=== PATIENT | female | born 1965 | race Asian ===

== ENCOUNTER 2017-10-13 08:16 | Inpatient (IN) | payer OTHER ==
[2017-10-13] MEDS ORDERED: SODIUM CHLORIDE 1,000 ML IV SCH (08:45)
--- NOTE | 2017-10-13 09:00 | PDOC ---
History of Present Illness - History of Present Illness Initial Comments: Davey Nielsen is a 52yo woman with no known medical history who presents today for acute onset of left-sided limb weakness and left-sided facial numbness. She reports that she woke up around 4:30 this morning for work and felt well at that point other than a headache which resolved with 800mg ibuprofen. She initially stated that she noticed the numbness and heaviness shortly after waking up and became concerned when it did not resolve. On further questioning, she clarified that she felt well in the morning and began to notice the facial numbness and left-sided heavieness while at work. She was concerned and an ambulance was called. Other than the headache this morning, she denies any additional symptoms. She has not had any infectious symptoms recently, has never been hospitalized, and states that she has never had similar symptoms in past. <Sophia Blanchard - Last Filed: 10/13/17 15:26> <Juan Smith - Last Filed: 10/15/17 14:59> - General Stated Complaint: Weakness Time Seen by Provider: 10/13/17 08:27 Past History - Past Medical History Other medical history: Pre-diabetes, does not require medication <Sophia Blanchard - Last Filed: 10/13/17 15:26> <Juan Smith - Last Filed: 10/15/17 14:59> - Past Medical History Allergies/Adverse Reactions: Allergies Allergy/AdvReac Type Severity Reaction Status Date / Time No Known Allergies Allergy Verified 10/13/17 09:16 Home Medications: Ambulatory Orders NK [No Known Home Medication] 10/13/17 Neuro Specific PMHX - Complaint Specific PMHX Glaucoma: No Herniated Disk: No Laminectomy: No Neuropathy: No TIA: No <Sophia Blanchard - Last Filed: 10/13/17 15:26> Review of Systems - Review of Systems Comments:: 10/13/17 09:01 General: No fatigue, no change in weight HEENT: No congestion, no runny nose, no change in voice Cards: No chest pain, no racing heart, no palpitations Pulm: No SOB, no cough, no h/o asthma GI: No nausea or vomiting, no change in bowel habits, no heartburn : No frequency, no dysuria Neuro: See HPI Endo: No excessive thirst, no temp intolerance Heme: No unusual bruising or bleeding Vasc: No claudication Psych: No change in mood <LoSophia - Last Filed: 10/13/17 15:26> *Physical Exam - Vital Signs Last Vital Signs Temp Pulse Resp BP Pulse Ox 98.6 F 71 16 132/89 100 10/13/17 08:16 10/13/17 08:16 10/13/17 08:16 10/13/17 08:16 10/13/17 08:16 <Juan Smith - Last Filed: 10/15/17 14:59> NIH Stroke Scale - Last Known Well Date/Time & Onset Date Last Known Well: 10/13/17 Time Last Known Well: 04:30 - Initial Evaluation Level of consciousness: Alert Ask patient the month and their age: Answers both correctly Ask patient to open & close eyes; make fist and let go: Obeys both correctly Best gaze (horizontal eye movement): Normal Visual field testing: No visual field loss Facial paresis (Show teeth/raise eyebrows/close eyes tight): Minor paralysis ( flattened nasolabial fold, asymmetry on smiling) Motor Function: Left Arm: Drift Motor Function: Right Arm: Normal (extends arm 90 (or 45) degrees for 10 seconds without drift Motor Function: Left Leg: Some effort against gravity Motor Function: Right Leg: Normal (extends leg 30 degrees for 5 seconds without drift) Limb Ataxia: No ataxia Sensory(Use pinprick test arms,legs,trunk,face/side to side): Normal Best language (Describe picture, name items, read sentences): No Aphasia Dysarthria (read several words): Normal articulation Extinction and Inattention: No abnormality - Total Score NIH Stroke Scale Score: 4 <LoSophai - Last Filed: 10/13/17 15:26> tPA Exclusion Checklist 0-3hr - Thrombolytic Therapy Candidate Is the patient eligible for Thrombolytic Therapy?: Yes - Exclusion Criteria 0-3hr SBP greater than 185 or DBP greater than 110mmHg despite tx: No Recent IC/spinal surgery,head trauma or stroke w/in last 3mo: No Hx of previous IC hemorrhage, IC neoplasm, AVM or aneurysm: No Active internal bleeding: No Blding diathesis(low plt ct, inc PTT,INR>1.7 or use of NOAC): No Symptoms suggest subarachnoid hemorrhage: No CT demonstrates multilobar infarct(>1/3 cerebral hemiphere): No Arterial puncture at noncompressible site in previous 7 days: No Blood glucose concentration less than 50mg/dL (2.7mmol/L): No - Relative Exclusion Criteria 0-3h Life expectancy <1yr/severe co-morbid illness/ONSHORE DIVER on admit: No : No Stroke severity too mild: No Recent acute AR (w/in previous 3 months): No Seizure at onset with postictal residual neuro impairments: No <Sophia Blanchard - Last Filed: 10/13/17 15:26> Critical Care Time/MDM Note - Medical Decision Making Note: Davey Nielsen is a 52yo woman with a history of prediabetes who presented to the ED today with acute onset of left-sided weakness and left facial numbness starting at approximately 6-6:30am. Her stroke scale was 3-4 and her presentation is highly suspicious for stroke. Code quesada called in the ED. - Noncontrast CT head negative for intracranial bleed - Initial glucose fingerstick 102 - CBC, CMP, EKG ordered - Neurology consulted, agree with likelihood of stroke. Plan to give tPA for non-hemorrhagic stroke. Discussed plan with patient and also her sister over the phone. Both are in agreement with plan. Neurology in agreement. Ms Herring has no contraindications to tPA administration. Formal consent was obtained prior to starting tPA. - The ICU was contacted for admission. - Neurology was consulted for evaluation and recommendations AT approximately 11am, Ms Nielsen's sister arrived at the ED and stated that the patient had been experiencing left arm weakness lasting for under 5 minutes periodically for the past week. She had not seen a physician for evaluation and had no leg weakness prior to today. Ms Nielsen was re-examined following tPA administration and her exam was unchanged with continued left-sided weakness. She was sent for CTA to evaluate for large vessel occlusion, but none was noted on CTA. Seen and discussed with Dr Smith. <Sophia Blanchard - Last Filed: 10/13/17 15:26> Total Critical Care Time: 65 Critical Care Statement: The care of this patient involved high complexity decision making to prevent further life threatening deterioration of the patient 's condition and/or to evaluate & treat vital organ system(s) failure or risk of failure. <Juan Smith - Last Filed: 10/15/17 14:59> Discharge Disposition <Sophia Blanchard - Last Filed: 10/13/17 15:26> - Discharge Dispostion Decision to Admit order: Yes <Juan Smith - Last Filed: 10/15/17 14:59> - Diagnosis Non-hemorrhagic stroke - Discharge Dispostion Condition at time of disposition: Critical
[2017-10-13] MEDS ORDERED: ALTEPLASE 100MG 100 MG IVPB ONE (09:12)
[2017-10-13] MEDS ORDERED: ALTEPLASE BOLUS IVPUSH ONE (09:16)
[2017-10-13] MEDS ORDERED: ALTEPLASE 100 MG VIAL IVPB ONE (09:16)
[2017-10-13 09:20] LABS: BASO % 2.4 % (0-2.0); EOS % 5.8 % (0-4.5); HEMATOCRIT 32.2 % (32.4-45.2); HEMOGLOBIN 9.8 GM/dL (10.7-15.3); LYMPH % 34.9 % (8-40); MCHC 30.6 g/dl (32.0-36.0); MEAN CELL VOLUME 64.9 fl (80-96); MEAN PLT VOLUME 9.2 fl (7.5-11.1); MONO % 8.2 % (3.8-10.2); NEUT % 48.7 % (42.8-82.8); PLATELET COUNT 269 K/MM3 (134-434); RBC 4.95 M/mm3 (3.60-5.2); RDW 19.3 % (11.6-15.6); WHITE BLOOD COUNT 6.2 K/mm3 (4.0-10.0)
[2017-10-13 09:32] LABS: INR 1.12 (0.82-1.09); MCH 19.9 pg (25.7-33.7); PROTHROMBIN TIME (PATIENT) 12.7 SEC (9.7-13.0)
[2017-10-13 09:43] LABS: ANION GAP 9 (8-16); BILIRUBIN,TOTAL 0.9 mg/dL (0.2-1.0); BLOOD UREA NITROGEN 11 mg/dL (7-18); CHLORIDE 106 mmol/L (98-107); CHOLESTEROL 211 mg/dL (50-200); CO2 26 mmol/L (21-32); CREATININE 0.7 mg/dL (0.55-1.02); GLUCOSE,RANDOM 85 mg/dL (74-106); SGPT/ALT 29 U/L (12-78); SODIUM 141 mmol/L (136-145); TOT PROT 9.3 g/dl (6.4-8.2); TRIGLYCERIDES 92 mg/dL (35-160)
--- NOTE | 2017-10-13 10:07 | PDOC ---
Attending Attestation - Resident Resident Name: Sophia Blanchard - HPI HPI: 10/13/17 10:53 The patient is a 52 year old female with no known medical history who presents to the emergency department for evaluation of left sided weakness and left- sided facial numbness. The patient reports left-sided weakness, left-sided facial numbness, and heaviness beginning at her job at 630am. Pt reports a 2 week history of intermittent left arm paresthesia. She reports waking up at 430am with a mild headache, resolved by 800mg ibuprofen. The patient denies chest pain, shortness of breath, fever, chills, nausea, vomiting, and urinary/bowel symptoms. Allergies: NKDA Social History: No reported alcohol, cigarette, or drug use. PCP: Dr. Anderson - Medical Decision Making The patient is a 52 year old female with no known medical history who presents to the emergency department for evaluation of left sided weakness and left- sided facial numbness. Plan: ECG Labs CT UA <Gonsalo Bob - Last Filed: 10/13/17 13:35> - ED Attending Attestation I have performed the following: I have examined & evaluated the patient, The case was reviewed & discussed with the resident, I agree w/resident's findings & plan, Exceptions are as noted - Physicial Exam PE: 10/13/17 13:48 Vitals: Triage Vital signs reviewed General Appearance: no acute distress, well nourished well developed, Head: Atraumatic, Chest Wall: Nontender Cardiac: Regular rate and rhythym, no murmurs, no rubs, no gallops, Lungs: Clear to auscultation bilateral, good air movement bilaterally, Abdomen: Soft, non distended, normal bowel sounds, non tender to palpation Extremities: Full range of motion to all extremities, no cyanosis, clubbing, or edema Skin: Warm and dry, no rashes or lesions, no rash, no petechiae Neuro: AOX3; very mild left-sided facial droop, 4 out of 5 weakness to left upper extremity. 3 out of 5 weakness to left lower leg. Sensation intact to all extremities Psych: normal mood, normal affect - Critical Care Time Total Critical Care Time: 75 Critical Care Statement: The care of this patient involved high complexity decision making to prevent further life threatening deterioration of the patient 's condition and/or to evaluate & treat vital organ system(s) failure or risk of failure. - Medical Decision Making Code Marcum activated NIHSS score, neurology consulted the patient sent to CT Reevaluation no acute bleed, images reviewed by me. Given NIHSS score 4 with no bleed after discussion with Dr. George decision made to give TPA TPA given Dr. Hein neurology at bedside. Decision made to obtain CTA to rule out large vessel occlusion Reevaluation no large vessel occlusion on CTA. Dr. Espinoza ICU aware. Will admit to ICU for definitive management. <Juan Smith - Last Filed: 10/13/17 13:53> Heart Score/ECG Review - ECG Impressions Comment:: 10/13/17 13:50 EKG performed that 901. Demonstrates sinus rhythm [address] elevations or T- wave inversions. No evidence of A. fib. Interpreted by me. <Juan Smith - Last Filed: 10/13/17 13:53> NIH Stroke Scale - Last Known Well Date/Time & Onset Date Last Known Well: 10/13/17 Time Last Known Well: 06:30 - Initial Evaluation Level of consciousness: Alert Ask patient the month and their age: Answers both correctly Ask patient to open & close eyes; make fist and let go: Obeys both correctly Best gaze (horizontal eye movement): Normal Visual field testing: No visual field loss Facial paresis (Show teeth/raise eyebrows/close eyes tight): Minor paralysis ( flattened nasolabial fold, asymmetry on smiling) Motor Function: Left Arm: Drift Motor Function: Right Arm: Normal (extends arm 90 (or 45) degrees for 10 seconds without drift Motor Function: Left Leg: Some effort against gravity Motor Function: Right Leg: Normal (extends leg 30 degrees for 5 seconds without drift) Limb Ataxia: No ataxia Sensory(Use pinprick test arms,legs,trunk,face/side to side): Normal Best language (Describe picture, name items, read sentences): No Aphasia Dysarthria (read several words): Normal articulation Extinction and Inattention: No abnormality - Total Score NIH Stroke Scale Score: 4 <Juan Smith - Last Filed: 10/13/17 13:53> Attestations - Attestations Documentation prepared by Gonsalo Bob, acting as medical science liaison for Juan Smith MD. <Gonsalo Bob - Last Filed: 10/13/17 13:35>
--- NOTE | 2017-10-13 10:43 | CON.NEURO ---
Consult Consult Specialty:: neurology Referred by:: Juan Smith MD Reason for Consultation:: Stroke Code - History of Present Illness Chief Complaint: numbness in left face, left sided weakness History of Present Illness: 52 year old woman, pre-diabetes, otherwise healthy who awoke this AM at 4:30 this AM and at 6:30 this AM started noticing numbness in the left face. Presented a short while later with numbness in that region and some weakness in the left face, arm and leg. Unclear what time the weakness started. She was given TPA upon our phone consultaton based on NIHSS of 4 and determination of significant disability, reasonable window, and no contraindications. Upon my arrival, as TPA was finishing she noted no longer feeling numb on left face but she remains weak on left side. - History Source History Provided By: Patient, Medical Record Limitations to Obtaining History: No Limitations - Past Medical History Endocrine: Yes: Other ("pre-diabetes") - Alcohol/Substance Use Hx Alcohol Use: No - Smoking History Smoking history: Never smoked Have you smoked in the past 12 months: No Home Medications - Allergies Allergies/Adverse Reactions: Allergies Allergy/AdvReac Type Severity Reaction Status Date / Time No Known Allergies Allergy Verified 10/13/17 09:16 Physical Exam-Neuro Vital Signs: Vital Signs Temperature 98.6 F 10/13/17 08:16 Pulse Rate 71 10/13/17 08:16 Respiratory Rate 16 10/13/17 08:16 Blood Pressure 132/89 10/13/17 08:16 O2 Sat by Pulse Oximetry (%) 100 10/13/17 08:16 Labs: CBC, BMP 10/13/17 08:58 INR, PTT INR 1.12 (0.82-1.09) 10/13/17 08:58 - Neuro Exam Level Of Consciousness: Yes: Alert, Oriented to Person, Oriented to Place, Oriented to Time Eyes: Yes: ERICA Speech: WNL Cranial Nerves II-XII Intact: Yes DTR's: 2+ Left Bicep, 2+ Right Bicep, 2+ Left Tricep, 2+ Right Tricep, 2+ Left Brachioradialis, 2+ Right Brachioradialis, 2+ Left Achilles, 2+ Right Achilles Babinski: Absent Response to light touch: Normal Response to pain prick: Normal Coordination: Normal: Finger to Nose, Heel to [place] Motor Strength: 2/5: Left Arm, 3/5: Left Leg, 5/5: Right Arm Gait: Deferred NIH Stroke Scale - Last Known Well Date/Time & Onset Date Last Known Well: 10/13/17 Time Last Known Well: 06:30 - Initial Evaluation Level of consciousness: Alert Ask patient the month and their age: Answers both correctly Ask patient to open & close eyes; make fist and let go: Obeys both correctly Best gaze (horizontal eye movement): Normal Visual field testing: No visual field loss Facial paresis (Show teeth/raise eyebrows/close eyes tight): Normal symmetrical movement Motor Function: Left Arm: Drift Motor Function: Right Arm: Normal (extends arm 90 (or 45) degrees for 10 seconds without drift Motor Function: Left Leg: Drift Motor Function: Right Leg: Normal (extends leg 30 degrees for 5 seconds without drift) Limb Ataxia: No ataxia Sensory(Use pinprick test arms,legs,trunk,face/side to side): Normal Best language (Describe picture, name items, read sentences): No Aphasia Dysarthria (read several words): Normal articulation Extinction and Inattention: No abnormality - Total Score NIH Stroke Scale Score: 2 Imaging - Results Cat Scan: Report Reviewed, Image Reviewed (negative) Problem List - Problems (1) Non-hemorrhagic stroke Code(s): I63.9 - CEREBRAL INFARCTION, UNSPECIFIED Assessment/Plan 52 year old woman within tpa window appropriately given TPA. SHe is a little better when I saw her than at initiation of TPA which is good, though still substantially impaired by left sided weakness. Discussed with Dr. Smith. Will get CTA to look for large vessel occlusion for possible intervention, and if positive transfer to [facility]. If negative admit to ICU. Start statin, add ASA after 24 hours as per TPA protocol, and get lipid profile, f/u NIHSS, and will f/u with you. Would get GRECIA wtiht bubble study, and stroke in young person workup to look for hypercoagulable state as she is young and has no other significant risk factors for stroke. WIll need telemetry f/u with longer term cardiac monitoring if no arrythmia or other source identified. THanks. Will f/u with you.
[2017-10-13 11:02] LABS: ALK PHOS 99 U/L (45-117); HDL CHOLESTEROL 65 mg/dL (40-60)
[2017-10-13 11:03] LABS: SGOT/AST 41 U/L (15-37)
[2017-10-13 11:04] LABS: POTASSIUM 4.4 mmol/L (3.5-5.1)
[2017-10-13 11:27] LABS: ANISOCYTOSIS 3+; MACROCYTOSIS 0; PLATELET ESTIMATE NORMAL
[2017-10-13 12:40] LABS: URINE APPEARANCE CLEAR; URINE BILIRUBIN NEGATIVE (<2.0 mg/dL); URINE COLOR COLORLESS; URINE GLUCOSE (UA) NEGATIVE (NEGATIVE); URINE KETONE NEGATIVE (NEGATIVE); URINE LEUK ESTERASE NEGATIVE (NEGATIVE); URINE NITRITE NEGATIVE (NEGATIVE); URINE PROTEIN NEGATIVE (NEGATIVE); URINE UROBILINOGEN NEGATIVE mg/dL (0.2-1.0)
--- NOTE | 2017-10-13 13:47 | HP ---
CHIEF COMPLAINT: Left sided weakness PCP: none HISTORY OF PRESENT ILLNESS: This is a 52 year old female with no significant PMHx who presented to the ED with left sided weakness and left facial numbness since 6:30 this morning. The patient reports around 4:30 this morning she woke up and had a headache. She reports taking ibuprofen with relief. She states then around 6:30am she began noticing left sided upper and lower extremity numbness and heaviness that did not resolve along with left sided facial numbness. She denies any dizziness, chest pain, palpitations, urinary symptoms, lower extremity swelling, change in vision. ER course was notable for: (1) TPA given at 9:30am (2) Head CT with no gross acute intracranial pathology (3) Head CTA with no focal hemodynamically significant stenosis, aneurysm, major artery cutoff or vascular malformation identified within the central intracranial arterial circulation. Acute on chronic sinusitis Recent Travel: denies PAST MEDICAL HISTORY: denies PAST SURGICAL HISTORY: denies Social History: Smoking: denies Alcohol: denies Drugs: denies Family History: Allergies No Known Allergies Allergy (Verified 10/13/17 09:16) HOME MEDICATIONS: Home Medications Medication Instructions Recorded NK [No Known Home Medication] 10/13/17 REVIEW OF SYSTEMS CONSTITUTIONAL: Absent: fever, chills, diaphoresis, generalized weakness, malaise, loss of appetite, weight change HEENT: Absent: rhinorrhea, nasal congestion, throat pain, throat swelling, difficulty swallowing, mouth swelling, ear pain, eye pain, visual changes CARDIOVASCULAR: Absent: chest pain, syncope, palpitations, irregular heart rate, lightheadedness , peripheral edema RESPIRATORY: Absent: cough, shortness of breath, dyspnea with exertion, orthopnea, wheezing, stridor, hemoptysis GASTROINTESTINAL: Absent: abdominal pain, abdominal distension, nausea, vomiting, diarrhea, constipation, melena, hematochezia GENITOURINARY: Absent: dysuria, frequency, urgency, hesitancy, hematuria, flank pain, genital pain MUSCULOSKELETAL: Absent: myalgia, arthralgia, joint swelling, back pain, neck pain SKIN: Absent: rash, itching, pallor HEMATOLOGIC/IMMUNOLOGIC: Absent: easy bleeding, easy bruising, lymphadenopathy, frequent infections ENDOCRINE: Absent: unexplained weight gain, unexplained weight loss, heat intolerance, cold intolerance NEUROLOGIC: headache that was relieved by tylenol. Left sided upper and lower extremity weakness and numbness that began at 6:30am this morning. Absent: dizziness, seizure, mental status changes, bladder or bowel incontinence PSYCHIATRIC: Absent: anxiety, depression, suicidal or homicidal ideation, hallucinations. PHYSICAL EXAMINATION Vital Signs - 24 hr 10/13/17 10/13/17 10/13/17 08:16 08:50 09:01 Temperature 98.6 F Pulse Rate 71 Pulse Rate [ Left] Respiratory 16 Rate Blood Pressure 132/89 Blood Pressure [Left Arm] O2 Sat by Pulse 100 100 100 Oximetry (%) 10/13/17 10/13/17 10/13/17 09:30 09:45 10:00 Temperature Pulse Rate Pulse Rate [ 80 81 72 Left] Respiratory 22 15 13 Rate Blood Pressure Blood Pressure 139/87 140/82 145/83 [Left Arm] O2 Sat by Pulse 100 99 100 Oximetry (%) 10/13/17 10/13/17 10/13/17 10:15 10:30 11:22 Temperature Pulse Rate Pulse Rate [ 71 76 74 Left] Respiratory 15 15 16 Rate Blood Pressure Blood Pressure 128/72 133/91 138/75 [Left Arm] O2 Sat by Pulse 100 100 100 Oximetry (%) 10/13/17 10/13/17 10/13/17 11:30 11:45 12:00 Temperature Pulse Rate Pulse Rate [ 73 73 72 Left] Respiratory 100 H 16 17 Rate Blood Pressure Blood Pressure 142/80 133/76 133/81 [Left Arm] O2 Sat by Pulse 16 L 100 100 Oximetry (%) 10/13/17 12:42 Temperature Pulse Rate Pulse Rate [ 68 Left] Respiratory 17 Rate Blood Pressure Blood Pressure 116/75 [Left Arm] O2 Sat by Pulse 100 Oximetry (%) GENERAL: Awake, alert, and fully oriented, in no acute distress. HEAD: Normal with no signs of trauma. EYES: Pupils equal, round and reactive to light, extraocular movements intact, sclera anicteric, conjunctiva clear. No lid lag. EARS, NOSE, THROAT: Ears normal, nares patent, oropharynx clear without exudates. Moist mucous membranes. NECK: Normal range of motion, supple without lymphadenopathy, JVD, or masses. LUNGS: Breath sounds equal, clear to auscultation bilaterally. No wheezes, and no crackles. No accessory muscle use. HEART: Regular rate and rhythm, normal S1 and S2 without murmur, rub or gallop. ABDOMEN: Soft, nontender, not distended, normoactive bowel sounds, no guarding, no rebound, no masses. No hepatomegaly or splenomegaly. MUSCULOSKELETAL: Normal range of motion at all joints. No bony deformities or tenderness. No CVA tenderness. UPPER EXTREMITIES: 2+ pulses, warm, well-perfused. No cyanosis. No clubbing. No peripheral edema. LOWER EXTREMITIES: 2+ pulses, warm, well-perfused. No calf tenderness. No peripheral edema. NEUROLOGICAL: LLE and LUE with 3/5 muscle strength. Able to lift PARVIN off bed on her own. Cranial nerves II-XII intact. Normal speech. PSYCHIATRIC: Cooperative. Good eye contact. Appropriate mood and affect. SKIN: Warm, dry, normal turgor, no rashes or lesions noted, normal capillary refill. Laboratory Results - last 24 hr 10/13/17 10/13/17 10/13/17 08:43 08:58 08:58 WBC 6.2 RBC 4.95 Hgb 9.8 L Hct 32.2 L MCV 64.9 L MCH 19.9 L MCHC 30.6 L RDW 19.3 H Plt Count 269 MPV 9.2 Absolute Neuts (auto) 3.0 Neutrophils % 48.7 Lymphocytes % 34.9 Monocytes % 8.2 Eosinophils % 5.8 H Basophils % 2.4 H Nucleated RBC % 0 Hypochromia 0 Platelet Estimate Normal Polychromasia 0 Poikilocytosis 1+ Anisocytosis 3+ Microcytosis 3+ Macrocytosis 0 PT with INR 12.70 INR 1.12 Sodium Potassium Chloride Carbon Dioxide Anion Gap BUN Creatinine Creat Clearance w eGFR Random Glucose Calcium Total Bilirubin AST ALT Alkaline Phosphatase Creatine Kinase Troponin I Total Protein Albumin Triglycerides Cholesterol Total LDL Cholesterol HDL Cholesterol Urine Color Urine Appearance Urine pH Ur Specific [place] Urine Protein Urine Glucose (UA) Urine Ketones Urine Blood Urine Nitrite Urine Bilirubin Urine Urobilinogen Ur Leukocyte Esterase Urine WBC (Auto) Urine RBC (Auto) Blood Type O POSITIVE Antibody Screen Negative 10/13/17 10/13/17 08:58 12:31 WBC RBC Hgb Hct MCV MCH MCHC RDW Plt Count MPV Absolute Neuts (auto) Neutrophils % Lymphocytes % Monocytes % Eosinophils % Basophils % Nucleated RBC % Hypochromia Platelet Estimate Polychromasia Poikilocytosis Anisocytosis Microcytosis Macrocytosis PT with INR INR Sodium 141 Potassium 4.4 Chloride 106 Carbon Dioxide 26 Anion Gap 9 BUN 11 Creatinine 0.7 Creat Clearance w eGFR > 60 Random Glucose 85 Calcium 9.0 Total Bilirubin 0.9 AST 41 H ALT 29 Alkaline Phosphatase 99 Creatine Kinase 110 Troponin I < 0.02 Total Protein 9.3 H Albumin 4.0 Triglycerides 92 Cholesterol 211 H Total LDL Cholesterol 131 H HDL Cholesterol 65 H Urine Color Colorless Urine Appearance Clear Urine pH 6.0 Ur Specific [place] 1.043 H Urine Protein Negative Urine Glucose (UA) Negative Urine Ketones Negative Urine Blood 1+ H Urine Nitrite Negative Urine Bilirubin Negative Urine Urobilinogen Negative Ur Leukocyte Esterase Negative Urine WBC (Auto) 1 Urine RBC (Auto) 2 Blood Type Antibody Screen Assessment: This is a 52 year old female with no significant PMHx who presented to the ED with left sided weakness and left facial numbness since 6:30 this morning. Plan: 1) Acute CVA, non-hemorrhagic - Received TPA per protocol in the ED - Neuro checks q15min during infusion, 130min for next 6 hours, then q1h for the next 24 hours - Vital signs q15min for 2 hours, then q30min for next 6 hours, then q1hour x24 hours - CTA with no evidence of occlusion - F/u lipid panel - Lipitor switched to Crestor per ICU staff - Start ASA tomorrow AM - PT evaluation - Swallow evaluation - F/u ECHO - Will need GRECIA with bubble study, f/u cardiology consult - Will need hypercoaguable workup, f/u hematology consult - For ICU monitoring - Appreciate neurology consult 2) F/E/N: - Monitor electrolytes - Regular diet 3) Prophylaxis: - Hold all chemical DVT prophylaxis as patient received TPA 4) Dispo: - Requires continued ICU care CODE STATUS: FULL CODE Visit type - Emergency Visit Emergency Visit: Yes ED Registration Date: 10/13/17 Care time: The patient presented to the Emergency Department on the above date and was hospitalized for further evaluation of their emergent condition. - New Patient This patient is new to me today: Yes Date on this admission: 10/13/17 - Critical Care Critical Care patient: Yes Total Critical Care Time (in minutes): 55 Critical Care Statement: The care of this patient involved high complexity decision making to prevent further life threatening deterioration of the patient 's condition and/or to evaluate & treat vital organ system(s) failure or risk of failure. Hospitalist Screening - Colonoscopy Questionnaire Colonoscopy Questionnaire: Colonoscopy Questionnaire - Patient: 50 - 75 years old and never had a screening colonoscopy: Yes History of colon or rectal polyps, or CA: No History of IBD, Crohn's disease or UC: No History of abdominal radiation therapy as a child: No - Relative: 1 with colon or rectal CA, or polyps at age 60 or younger: Unknown Colon or rectal CA diagnosed at age 45 or younger: Unknown Multiple relatives with colon or rectal CA: Unknown - Outcome: Screening Result: Positive Screen
--- NOTE | 2017-10-13 14:13 | PN ---
Teaching Attending Note Name of Resident: Cedrick Barajas ATTENDING PHYSICIAN STATEMENT I saw and evaluated the patient. I reviewed the resident's note and discussed the case with the resident. I agree with the resident's findings and plan as documented. SUBJECTIVE: Pt seen and examined in the ER. Briefly, 52yo female without significant past medical history who started experiencing left arm and leg weakness, face numbness at 6:30. Headache earlier. NIHSS 4, initial CT head negative, given tPA now with some improvement in left sided weakness. CTA negative for large vessel occlusion. OBJECTIVE: Vital Signs Period Temp Pulse Resp BP Sys/Chavarria Pulse Ox Last 24 Hr 98.6 F 68-81 13-100 101-145/68-91 16-100 Intake & Output 10/10/17 10/11/17 10/12/17 10/13/17 23:59 23:59 23:59 23:59 Output Total 500 Balance -500 Weight 77.111 kg Gen: NAD at rest Heart: RRR Lung: decreased breath sounds at the bases Abd: soft, nontender Ext: no edema Neuro: 4/5 motor LUE, 3/5 LLE CBC, BMP 10/13/17 08:58 10/13/17 08:58 Active Medications Sodium Chloride (Normal Saline -) 1,000 mls @ 42 mls/hr IV ASDIR BRIANNA Last Admin: 10/13/17 09:00 Dose: 42 mls/hr ASSESSMENT AND PLAN: Acute CVA s/p tPA - neuro checks - allow permissive hypertension - monitor H/H - echocardiogram with bubble study - carotid dopplers - telemetry monitoring - monitor in ICU s/p tPA
[2017-10-13] MEDS ORDERED: HEMOQUE TEST 1 EACH EACH ONE (14:45)
[2017-10-13 15:10] LABS: CHOLESTEROL 196 mg/dL (50-200); TRIGLYCERIDES 71 mg/dL (35-160)
[2017-10-13 15:12] LABS: HDL CHOLESTEROL 59 mg/dL (40-60)
--- NOTE | 2017-10-13 15:13 | CONSULT ---
Consultation: REQUESTING PROVIDER: CONSULT REQUEST: We have been asked to medically evaluate this patient for ( acute CVA s/p tPA infusion). HISTORY OF PRESENT ILLNESS: 52 yo female admitted to the ICU following acute CVA which occured this morning after she woke up and went to work. Stated she started having numbness on the left face, left arm, and left leg with weakness. She immediately went to the ER and was inside the tPA window and met all criteria for tPA infusion. When I saw her in the ED after tPA had completed, she was able to speak clearly, move her left side and stated that there was improvement from prior to tPA. Her family was in the room and agreed she was improved. REVIEW OF SYSTEMS: CONSTITUTIONAL: Absent: fever, chills, diaphoresis, generalized weakness, malaise, loss of appetite, weight change HEENT: Absent: rhinorrhea, nasal congestion, throat pain, throat swelling, difficulty swallowing, mouth swelling, ear pain, eye pain, visual changes CARDIOVASCULAR: Absent: chest pain, syncope, palpitations, irregular heart rate, lightheadedness , peripheral edema RESPIRATORY: Absent: cough, shortness of breath, dyspnea with exertion, orthopnea, wheezing, stridor, hemoptysis GASTROINTESTINAL: Absent: abdominal pain, abdominal distension, nausea, vomiting, diarrhea, constipation, melena, hematochezia GENITOURINARY: Absent: dysuria, frequency, urgency, hesitancy, hematuria, flank pain, genital pain MUSCULOSKELETAL: Absent: myalgia, arthralgia, joint swelling, back pain, neck pain SKIN: Absent: rash, itching, pallor HEMATOLOGIC/IMMUNOLOGIC: Absent: easy bleeding, easy bruising, lymphadenopathy, frequent infections ENDOCRINE: Absent: unexplained weight gain, unexplained weight loss, heat intolerance, cold intolerance NEUROLOGIC: headache, focal weakness Absent: , dizziness, unsteady gait, seizure, mental status changes, bladder or bowel incontinence PSYCHIATRIC: Absent: anxiety, depression, suicidal or homicidal ideation, hallucinations. PHYSICAL EXAMINATION Vital Signs - 24 hr 10/13/17 10/13/17 10/13/17 08:16 08:50 09:01 Temperature 98.6 F Pulse Rate 71 Pulse Rate [ Left] Respiratory 16 Rate Blood Pressure 132/89 Blood Pressure [Left Arm] O2 Sat by Pulse 100 100 100 Oximetry (%) 07/10/18 07/10/18 07/10/18 09:30 09:45 10:00 Temperature Pulse Rate Pulse Rate [ 80 81 72 Left] Respiratory 22 15 13 Rate Blood Pressure Blood Pressure 139/87 140/82 145/83 [Left Arm] O2 Sat by Pulse 100 99 100 Oximetry (%) 10/13/17 10/13/17 10/13/17 10:15 10:30 11:22 Temperature Pulse Rate Pulse Rate [ 71 76 74 Left] Respiratory 15 15 16 Rate Blood Pressure Blood Pressure 128/72 133/91 138/75 [Left Arm] O2 Sat by Pulse 100 100 100 Oximetry (%) 10/13/17 10/13/17 10/13/17 11:30 11:45 12:00 Temperature Pulse Rate Pulse Rate [ 73 73 72 Left] Respiratory 100 H 16 17 Rate Blood Pressure Blood Pressure 142/80 133/76 133/81 [Left Arm] O2 Sat by Pulse 16 L 100 100 Oximetry (%) 10/13/17 10/13/17 10/13/17 12:42 13:00 13:30 Temperature Pulse Rate Pulse Rate [ 68 78 71 Left] Respiratory 17 16 16 Rate Blood Pressure Blood Pressure 116/75 112/68 101/68 [Left Arm] O2 Sat by Pulse 100 100 100 Oximetry (%) 10/13/17 10/13/17 14:00 14:30 Temperature Pulse Rate Pulse Rate [ 76 77 Left] Respiratory 16 16 Rate Blood Pressure Blood Pressure 118/62 117/69 [Left Arm] O2 Sat by Pulse 100 100 Oximetry (%) GENERAL: Awake, alert, and fully oriented, in no acute distress. HEAD: Normal with no signs of trauma. EYES: Pupils equal, round and reactive to light, extraocular movements intact, sclera anicteric, conjunctiva clear. No lid lag. EARS, NOSE, THROAT: Ears normal, nares patent, oropharynx clear without exudates. Moist mucous membranes. NECK: Normal range of motion, supple without lymphadenopathy, JVD, or masses. LUNGS: Breath sounds equal, clear to auscultation bilaterally. No wheezes, and no crackles. No accessory muscle use. HEART: Regular rate and rhythm, normal S1 and S2 without murmur, rub or gallop. ABDOMEN: Soft, nontender, not distended, normoactive bowel sounds, no guarding, no rebound, no masses. No hepatomegaly or splenomegaly. MUSCULOSKELETAL: Normal range of motion at all joints. No bony deformities or tenderness. No CVA tenderness. UPPER EXTREMITIES: 2+ pulses, warm, well-perfused. No cyanosis. No clubbing. Cap refill <2 seconds. No peripheral edema. LOWER EXTREMITIES: 2+ pulses, warm, well-perfused. No calf tenderness. No peripheral edema. NEUROLOGICAL: 3/5 strength of the LLE, 4/5 LUE. 5/5 strength of RLE, RUE. Cranial nerves II-XII intact. Normal speech. Gait not observed. PSYCHIATRIC: Cooperative. Good eye contact. Appropriate mood and affect. SKIN: Warm, dry, normal turgor, no rashes or lesions noted. Laboratory Results - last 24 hr 10/13/17 10/13/17 10/13/17 08:43 08:58 08:58 WBC 6.2 RBC 4.95 Hgb 9.8 L Hct 32.2 L MCV 64.9 L MCH 19.9 L MCHC 30.6 L RDW 19.3 H Plt Count 269 MPV 9.2 Absolute Neuts (auto) 3.0 Neutrophils % 48.7 Lymphocytes % 34.9 Monocytes % 8.2 Eosinophils % 5.8 H Basophils % 2.4 H Nucleated RBC % 0 Hypochromia 0 Platelet Estimate Normal Polychromasia 0 Poikilocytosis 1+ Anisocytosis 3+ Microcytosis 3+ Macrocytosis 0 PT with INR 12.70 INR 1.12 Sodium Potassium Chloride Carbon Dioxide Anion Gap BUN Creatinine Creat Clearance w eGFR Random Glucose Calcium Total Bilirubin AST ALT Alkaline Phosphatase Creatine Kinase Troponin I Total Protein Albumin Triglycerides Cholesterol Total LDL Cholesterol HDL Cholesterol Urine Color Urine Appearance Urine pH Ur Specific [place] Urine Protein Urine Glucose (UA) Urine Ketones Urine Blood Urine Nitrite Urine Bilirubin Urine Urobilinogen Ur Leukocyte Esterase Urine WBC (Auto) Urine RBC (Auto) Blood Type O POSITIVE Antibody Screen Negative 10/13/17 10/13/17 10/13/17 08:58 11:45 12:31 WBC RBC Hgb Hct MCV MCH MCHC RDW Plt Count MPV Absolute Neuts (auto) Neutrophils % Lymphocytes % Monocytes % Eosinophils % Basophils % Nucleated RBC % Hypochromia Platelet Estimate Polychromasia Poikilocytosis Anisocytosis Microcytosis Macrocytosis PT with INR INR Sodium 141 Potassium 4.4 Chloride 106 Carbon Dioxide 26 Anion Gap 9 BUN 11 Creatinine 0.7 Creat Clearance w eGFR > 60 Random Glucose 85 Calcium 9.0 Total Bilirubin 0.9 AST 41 H ALT 29 Alkaline Phosphatase 99 Creatine Kinase 110 Troponin I < 0.02 Total Protein 9.3 H Albumin 4.0 Triglycerides 92 Cholesterol 211 H Total LDL Cholesterol 131 H HDL Cholesterol 65 H Urine Color Colorless Urine Appearance Clear Urine pH 6.0 Ur Specific [place] 1.043 H Urine Protein Negative Urine Glucose (UA) Negative Urine Ketones Negative Urine Blood 1+ H Urine Nitrite Negative Urine Bilirubin Negative Urine Urobilinogen Negative Ur Leukocyte Esterase Negative Urine WBC (Auto) 1 Urine RBC (Auto) 2 Blood Type O POSITIVE Antibody Screen Active Medications Generic Name Dose Route Start Last Admin Trade Name Benq PRN Reason Stop Dose Admin Aspirin 81 mg 10/14/17 10:00 Ecotrin - PO DAILY BRIANNA Sodium Chloride 1,000 mls @ 42 mls/hr 10/13/17 08:45 10/13/17 09:00 Normal Saline - IV 42 mls/hr ASDIR BRIANNA Administration Insulin Aspart 1 vial 10/13/17 16:30 Novolog Vial Sliding Scale - SQ ACHS BRIANNA Protocol Rosuvastatin Calcium 40 mg 10/13/17 22:00 Crestor - PO HS BRIANNA ASSESSMENT/PLAN: 52 yo female admitted to the ICU with CVA s/p tPA infusion Neuro -Acute CVA s/p tPA Weakness is resolving Continue to monitor with Neuro checks Q2 Crestor 40 mg PO HS ASA 81mg PO Daily Cardio -Permissive HTN s/p tPA infusion Currently normotensive Maintain b.p <185 systolic and <110 diastolic -Echo ordered -Carotid Doppler b/l -Lipid panel Respiratory -No respiratory complaints, will caution pt to be careful eating and elevate head of bed to decrease risk of aspiration tolerating normal diet well GI -No GI complaints as of now Renal -Good renal function, follow BMP Endocrine -No hx of DM Tight glycemic control <180 Insulin sliding scale ordered as precaution -TSH VTE Prophylaxis -SCDs b/l -Witholding heparin for now after tPA will await neurology consult FEN Fluids: No fluids now as tolerating PO intake Electrolytes: No electrolyte abnormalities Nutrition: Tolerating regular diet well Dispo: We will continue to follow the patient. Thank you for this consultative opportunity. Problem List - Problems (1) Non-hemorrhagic stroke Code(s): I63.9 - CEREBRAL INFARCTION, UNSPECIFIED Visit type - Emergency Visit Emergency Visit: Yes ED Registration Date: 10/13/17 Care time: The patient presented to the Emergency Department on the above date and was hospitalized for further evaluation of their emergent condition. - New Patient This patient is new to me today: Yes Date on this admission: 10/13/17 - Critical Care Critical Care patient: Yes Total Critical Care Time (in minutes): 45 Critical Care Statement: The care of this patient involved high complexity decision making to prevent further life threatening deterioration of the patient 's condition and/or to evaluate & treat vital organ system(s) failure or risk of failure.
--- NOTE | 2017-10-13 15:46 | CONSULT ---
Admitting History and Physical - Primary Care Physician PCP: Domingo Tipton - Admission History of Present Illness: 52 yo female admitted to the ICU with CVA s/p tPA infusion History Source: Patient, Family Member, Medical Record Limitations to Obtaining History: No Limitations - Past Medical History Endocrine: Yes: Other ("pre-diabetes") - Smoking History Smoking history: Never smoked Have you smoked in the past 12 months: No - Alcohol/Substance Use Hx Alcohol Use: No History - Admission Reason For Visit: NON HEMORRHAGIC CVA - Diagnostics X-ray: Report Reviewed CT Scan: Report Reviewed - General Mental Status: Alert and Oriented, Awake and Alert, Able to Follow Commands Attention: Intact Ability to Follow Directions: Excellent Head/Neck Control: WFL - Hearing Hearing: Normal Speech Evaluation - Communication Communication: Yes: Within Normal Limits Oral Expression Ability: Yes: No Impairment - Speech Production Able to Make Needs Known: Yes: WNL Intelligibility: Yes: WNL - Speech Characteristics Voice Loudness: Normal Voice Pitch: Yes: Normal Voice Phonatory-based Quality: Yes: Normal Speech Pattern: Normal Speech Clarity: < 100% Nasal Resonance: Normal Articulation: Yes: Precise Rate of Speech: Intact - Language/Auditory Comprehension Follows: Yes: 2 Stage Simple Commands - Language/Verbal Expression Able to Respond to Simple Queries: Yes: WNL Able to Communicate Wants and Needs: Yes: WNL Functional Communication Status: Yes: WNL - Memory/Perception half-way Memory: Yes: WNL Short Term Memory: Yes: WNL - Swallow Evaluation/Bedside Assessment Current Nutritional Intake: Regular, Thin Liquids Oral Secretions: Yes: WFL Dentition: Yes: Adequate Facial Symmetry at Rest: Facial Droop Left Facial Symmetry on Retraction: Symmetrical Facial Movement: Controlled Sensation: Normal Against Resistance Opening: Normal Against Resistance Closing: Normal Pucker Lips: Normal Smile: Normal Lingual Movement: Normal, Symmetric Lingual Speed of Movement: Normal Lingual Movement Strgth Against Opposition: Normal Lingual Movement Characteristics: Normal Velopharyngeal Movement: Normal, Absent Laryngeal Movement: Able to Palpate Rate of Intake: WFL Bolus Size: WFL Labial Seal: WFL Chewing: WFL Oral Prep Time: WFL A-P Transit: WFL Pocketing: None Timing of Swallow: WFL Coughing/Throat Clear: No Change in Voice: No Recommendations - Speech Evaluation, Impression/Plan Impression: Mild left facial and left side weakness, improving. Speech, language , swallowing grossly intact. Seen in ER, sleepy but arousable. Tolerated lunch. - Dysphagia Impressions/Plan Swallowing Skills: [facility] Dysphagia Impressions: Ongoing Evaluation *Silent aspiration: cannot be R/O at bedside Recommendations: Other (Monitor for PO tolerance/Neurologic changes.) - Recommendations Diet Consistency: Regular Medication Administration: Whole with water Liquids: Thin Liquids
[2017-10-13] MEDS ORDERED: ATORVASTATIN CA 40 MG TABLET (FP) PO SCH (22:00)
[2017-10-13] MEDS ORDERED: ROSUVASTATIN CA 40 MG TABLET PO SCH (22:00)
[2017-10-13] MEDS: INSULIN SLIDING SCALE (NOVOLOG) 1 VIAL SQ SCH (22:00)
[2017-10-13] MEDS ORDERED: ROSUVASTATIN CA 20 MG TABLET (FP) PO SCH (22:48)
[2017-10-14] MEDS ORDERED: ROSUVASTATIN CA 20 MG TABLET (FP) PO SCH ×2 (00:15→10:28)
[2017-10-14] MEDS: INSULIN SLIDING SCALE (NOVOLOG) 1 VIAL SQ SCH ×4 (06:29→22:35)
[2017-10-14] MEDS ORDERED: ACETAMINOPHEN 325 MG TABLET (FP) PO PRN (07:55)
[2017-10-14] MEDS: ASPIRIN COATED 81 MG TABLET.EC PO SCH (09:11)
[2017-10-14] MEDS ORDERED: SODIUM CHLORIDE 1,000 ML IV SCH (09:16)
--- NOTE | 2017-10-14 10:01 | CON.CARD ---
Consult Consult Specialty:: Cardiology Referred by:: Hospital Medicine Reason for Consultation:: Acute stroke - History of Present Illness Chief Complaint: Left sided weakness and facial numbness History of Present Illness: 52yo female without significant past medical history presented with left arm and leg weakness, face numbness, headache earlier. NIHSS 4, initial CT head negative, given tPA with improvement in left sided weakness and left facial numbness. CTA negative for large vessel occlusion, repeat HCT negative, brain MRI pending, tele without PAF, carotid U/S negative. - History Source History Provided By: Patient Limitations to Obtaining History: No Limitations - Past Medical History ...LMP: 09/30/17 ...: No (tube ligation) Endocrine: Yes: Other ("pre-diabetes") - Alcohol/Substance Use Hx Alcohol Use: No - Smoking History Smoking history: Never smoked Have you smoked in the past 12 months: No If you are a former smoker, when did you quit?: over 5 years ago Home Medications - Allergies Allergies/Adverse Reactions: Allergies Allergy/AdvReac Type Severity Reaction Status Date / Time No Known Allergies Allergy Verified 10/13/17 09:16 - Home Medications Home Medications: Ambulatory Orders NK [No Known Home Medication] 10/13/17 Review of Systems - Review of Systems Neurological: reports: Numbness (Left facial), Weakness (Left sided) Vital Signs: Vital Signs Temperature 97.4 F L 10/14/17 06:00 Pulse Rate 65 10/14/17 08:00 Respiratory Rate 14 10/14/17 08:00 Blood Pressure 108/69 10/14/17 08:00 O2 Sat by Pulse Oximetry (%) 98 10/13/17 20:53 Constitutional: Yes: No Distress, Calm, Thin Neck: Yes: Supple Respiratory: Yes: Regular, CTA Bilaterally Gastrointestinal: Yes: Normal Bowel Sounds, Soft Cardiovascular: Yes: Regular Rate and Rhythm JVD: No Carotid Bruit: No Heart Sounds: Yes: S1, S2 Edema: No Neurological: Yes: Numbness, Weakness - Other Data Labs, Other Data: CBC, BMP 10/13/17 08:58 10/13/17 08:58 INR, PTT INR 1.12 (0.82-1.09) 10/13/17 08:58 Troponin, BNP 10/13/17 08:58 Troponin I < 0.02 Troponin, BNP 10/13/17 08:58 Troponin I < 0.02 NSR @ [address]-T changes Tele: No PAF Imaging - Results Ultrasound: Report Reviewed (No stenosis) EKG: Report Reviewed Problem List - Problems (1) Hyperlipidemia Code(s): E78.5 - HYPERLIPIDEMIA, UNSPECIFIED Qualifiers: Hyperlipidemia type: pure hypercholesterolemia Qualified Code(s): E78.00 - Pure hypercholesterolemia, unspecified; E78.0 - Pure hypercholesterolemia (2) Non-hemorrhagic stroke Code(s): I63.9 - CEREBRAL INFARCTION, UNSPECIFIED Assessment/Plan 10/14/2017 Echo: Normal LV size and fxn, no aortic stenosis, mild YONI, normal atrial sizes 1. Acute CVA s/p tPA improving 2. Hyperlipidemia P:1. monitor and storage bin tender to r/o PAF, would benefit from prolonged arrhythmia monitoring to screen for PAF as outpatient 2. F/u brain MRI, neuro checks 3. S&S eval, neuro input, PT appreciated 4. Continue ASA 81 qd, Crestor 20 qd 5. Thank you for consultative opportunity
--- NOTE | 2017-10-14 10:38 | PN ---
Progress Note (short form) - Note Progress Note: Subjective: The patient was seen and examined in the ICU, neuro exam about the same as yesterday. Able to lift left leg about 6 inches off the bed and hold it for 2-3 seconds. LUE with 3/5 strength. Current Medications Generic Name Dose Route Start Last Admin Trade Name Freq PRN Reason Stop Dose Admin Acetaminophen 650 mg 10/14/17 07:55 10/14/17 09:11 Tylenol - PO 650 mg Q6H PRN Administration Fever Or Pain Aspirin 81 mg 10/14/17 10:00 10/14/17 09:11 Ecotrin - PO 81 mg DAILY BRIANNA Administration Sodium Chloride 1,000 mls @ 75 mls/hr 10/14/17 09:16 Normal Saline - IV ASDIR BRIANNA Insulin Aspart 1 vial 10/13/17 16:30 10/14/17 06:29 Novolog Vial Sliding Scale - SQ Not Given ACHS BRIANNA Protocol Rosuvastatin Calcium 20 mg 10/14/17 10:28 Crestor - PO HS BRIANNA Objective: Vital Signs Period Temp Pulse Resp BP Sys/Chavarria Pulse Ox Last 24 Hr 97.3 F-98.6 F 60-84 13-100 93-142/60-82 16-100 Physical Exam: General: NAD, A&Ox3 Neuro: LUE/LLE 3/5 muscle strength CBCD WBC 6.2 K/mm3 (4.0-10.0) 10/13/17 08:58 RBC 4.95 M/mm3 (3.60-5.2) 10/13/17 08:58 Hgb 9.8 GM/dL (10.7-15.3) L 10/13/17 08:58 Hct 32.2 % (32.4-45.2) L 10/13/17 08:58 MCV 64.9 fl (80-96) L 10/13/17 08:58 MCHC 30.6 g/dl (32.0-36.0) L 10/13/17 08:58 RDW 19.3 % (11.6-15.6) H 10/13/17 08:58 Plt Count 269 K/MM3 (134-434) 10/13/17 08:58 MPV 9.2 fl (7.5-11.1) 10/13/17 08:58 CMP Sodium 141 mmol/L (136-145) 10/13/17 08:58 Potassium 4.4 mmol/L (3.5-5.1) 10/13/17 08:58 Chloride 106 mmol/L (98-107) 10/13/17 08:58 Carbon Dioxide 26 mmol/L (21-32) 10/13/17 08:58 Anion Gap 9 (8-16) 10/13/17 08:58 BUN 11 mg/dL (7-18) 10/13/17 08:58 Creatinine 0.7 mg/dL (0.55-1.02) 10/13/17 08:58 Creat Clearance w eGFR > 60 (>60) 10/13/17 08:58 Random Glucose 85 mg/dL (74-106) 10/13/17 08:58 Calcium 9.0 mg/dL (8.5-10.1) 10/13/17 08:58 Total Bilirubin 0.9 mg/dL (0.2-1.0) 10/13/17 08:58 AST 41 U/L (15-37) H 10/13/17 08:58 ALT 29 U/L (12-78) 10/13/17 08:58 Alkaline Phosphatase 99 U/L (45-117) 10/13/17 08:58 Total Protein 9.3 g/dl (6.4-8.2) H 10/13/17 08:58 Albumin 4.0 g/dl (3.4-5.0) 10/13/17 08:58 CARDIAC ENZYMES Creatine Kinase 110 IU/L (26-192) 10/13/17 08:58 Troponin I < 0.02 ng/ml (0.00-0.05) 10/13/17 08:58 Assessment: This is a 52 year old female with no significant PMHx who presented to the ED with left sided weakness and left facial numbness since 6:30AM on day of admission, is now s/p TPA Plan: 1) Acute CVA, non-hemorrhagic - Received TPA per protocol in the ED - Neuro checks - CTA with no evidence of occlusion - Repeat head CT with no evidence of intracranial hemorrhage - Crestor 20mg po hs - Start ASA - PT evaluation - ECHO reviewed - Will need hypercoaguable workup, f/u hematology consult - For ICU monitoring - Appreciate swallow evaluation - Appreciate neurology consult 2) Acute sinusitis - As evidence on CT - Likely viral, symptoms started yesterday morning with a headache. Patient denies any nasal discharge, however does have frontal sinus tenderness on exam - Will continue to observe off antibiotics. If symptoms worsen or persist past 7 days, consider adding antibiotics 2) F/E/N: - Monitor electrolytes - Regular diet 3) Prophylaxis: - Hold all chemical DVT prophylaxis as patient received TPA 4) Dispo: - Requires continued ICU care CODE STATUS: FULL CODE Visit type - Emergency Visit Emergency Visit: Yes ED Registration Date: 10/13/17 Care time: The patient presented to the Emergency Department on the above date and was hospitalized for further evaluation of their emergent condition. - New Patient This patient is new to me today: No - Critical Care Critical Care patient: Yes Total Critical Care Time (in minutes): 45 Critical Care Statement: The care of this patient involved high complexity decision making to prevent further life threatening deterioration of the patient 's condition and/or to evaluate & treat vital organ system(s) failure or risk of failure.
--- NOTE | 2017-10-14 11:19 | PN ---
Progress Note, [employer] SAL[employer] REPRESENTATIVE - Note Progress Note: Face now symmetric. Better able to lift Left arm Tolerating diet. Speech/swallow/cognition, language intact. No further f/u indicated at this time.
--- NOTE | 2017-10-14 11:41 | EKG ---
Test Reason : Blood Pressure : / mmHG Vent. Rate : 063 BPM Atrial Rate : 063 BPM P-R Int : 144 ms QRS Dur : 084 ms QT Int : 410 ms P-R-T Axes : 053 058 046 degrees QTc Int : 419 ms POOR DATA QUALITY, INTERPRETATION MAY BE ADVERSELY AFFECTED NORMAL SINUS RHYTHM NORMAL ECG NO PREVIOUS ECGS AVAILABLE Confirmed by TEE RYAN MD ([id number]) on 10/14/2017 11:40:49 AM Referred By: Confirmed By:TEE RYAN MD
--- NOTE | 2017-10-14 11:48 | PN ---
Physical Exam: SUBJECTIVE: Patient seen and examined in the ICU. States that her weakness is subjectively better than yesterday. Complains of a headache this morning but that it was improved after tylenol. Denies: Nausea, vomiting, SOB, cough, vision changes. OBJECTIVE: Vital Signs Period Temp Pulse Resp BP Sys/Chavarria Pulse Ox Last 24 Hr 97.3 F-98.6 F 60-84 13-20 93-133/60-82 98-100 GENERAL: Awake, alert, and fully oriented, in no acute distress. HEAD: Normal with no signs of trauma. EYES: PERRLA, extraocular movements intact, sclera anicteric, conjunctiva clear. No lid lag. EARS, NOSE, THROAT: Ears normal, nares patent, Moist mucous membranes. NECK: supple without lymphadenopathy, JVD, or masses. LUNGS: Breath sounds equal, clear to auscultation bilaterally. No wheezes, and no crackles. No accessory muscle use. HEART: Regular rate and rhythm, normal S1 and S2 without murmur, rub or gallop. ABDOMEN: Soft, nontender, not distended, normoactive bowel sounds, no guarding, no rebound, no masses. MUSCULOSKELETAL: Normal range of motion at all joints. No bony deformities or tenderness. No CVA tenderness. UPPER EXTREMITIES: warm, well-perfused. No cyanosis. No clubbing. Cap refill <2 seconds. No peripheral edema. LOWER EXTREMITIES: warm, well-perfused. No calf tenderness. No peripheral edema. NEUROLOGICAL: 3/5 strength of the LLE, 4/5 LUE remains from yesterday. 5/5 strength of RLE, RUE. Cranial nerves II-XII grossly intact. Normal speech. Gait not observed. PSYCHIATRIC: Cooperative. Good eye contact. Appropriate mood and affect. SKIN: Warm, dry, normal turgor, no rashes or lesions noted. Laboratory Results - last 24 hr 10/13/17 10/13/17 10/13/17 07:00 08:48 11:45 POC Glucometer 102.12465 Hemoglobin A1c % 5.1 Triglycerides Cholesterol Total LDL Cholesterol HDL Cholesterol Urine Color Urine Appearance Urine pH Ur Specific Leon Urine Protein Urine Glucose (UA) Urine Ketones Urine Blood Urine Nitrite Urine Bilirubin Urine Urobilinogen Ur Leukocyte Esterase Urine WBC (Auto) Urine RBC (Auto) Blood Type O POSITIVE 07/01/2110/13/17 10/13/17 12:31 14:35 14:57 POC Glucometer 122.19221 Hemoglobin A1c % Triglycerides 71 Cholesterol 196 Total LDL Cholesterol 128 H HDL Cholesterol 59 Urine Color Colorless Urine Appearance Clear Urine pH 6.0 Ur Specific Leon 1.043 H Urine Protein Negative Urine Glucose (UA) Negative Urine Ketones Negative Urine Blood 1+ H Urine Nitrite Negative Urine Bilirubin Negative Urine Urobilinogen Negative Ur Leukocyte Esterase Negative Urine WBC (Auto) 1 Urine RBC (Auto) 2 Blood Type Active Medications Generic Name Dose Route Start Last Admin Trade Name Michelle PRN Reason Stop Dose Admin Acetaminophen 650 mg 10/14/17 07:55 10/14/17 09:11 Tylenol - PO 650 mg Q6H PRN Administration Fever Or Pain Aspirin 81 mg 10/14/17 10:00 10/14/17 09:11 Ecotrin - PO 81 mg DAILY BRIANNA Administration Sodium Chloride 1,000 mls @ 75 mls/hr 10/14/17 09:16 10/14/17 11:14 Normal Saline - IV 75 mls/hr ASDIR BRIANNA Administration Insulin Aspart 1 vial 10/13/17 16:30 10/14/17 11:14 Novolog Vial Sliding Scale - SQ Not Given ACHS BRIANNA Protocol Rosuvastatin Calcium 20 mg 10/14/17 10:28 Crestor - PO HS BRIANNA ASSESSMENT/PLAN: 52 yo female admitted to the ICU with CVA s/p tPA infusion Neuro -Acute CVA s/p tPA Weakness similar to yesterday Continue to monitor with Neuro checks Q2 Crestor 20 mg PO HS ASA 81mg PO Daily Cardio -Permissive HTN s/p tPA infusion Currently normotensive Maintain b.p <185 systolic and <110 diastolic -Echo reviewed -Carotid Doppler b/l revealed no stenosis -Lipid panel: LDL 128 - statin as above Respiratory -No respiratory complaints, will caution pt to be careful eating and elevate head of bed to decrease risk of aspiration tolerating normal diet well GI -No GI complaints as of now Renal -Good renal function, follow BMP Endocrine -No hx of DM Tight glycemic control <180 Insulin sliding scale ordered as precaution -TSH VTE Prophylaxis -SCDs b/l -Witholding heparin for now after tPA will await neurology consult FEN Fluids: NS @ 75 cc/hr Electrolytes: No electrolyte abnormalities Nutrition: Tolerating regular diet well Disposition Transfer to telemetry Problem List - Problems (1) Non-hemorrhagic stroke Code(s): I63.9 - CEREBRAL INFARCTION, UNSPECIFIED Visit type - Emergency Visit Emergency Visit: Yes ED Registration Date: 10/13/17 Care time: The patient presented to the Emergency Department on the above date and was hospitalized for further evaluation of their emergent condition. - New Patient This patient is new to me today: No - Critical Care Critical Care patient: Yes Total Critical Care Time (in minutes): 35 Critical Care Statement: The care of this patient involved high complexity decision making to prevent further life threatening deterioration of the patient 's condition and/or to evaluate & treat vital organ system(s) failure or risk of failure.
--- NOTE | 2017-10-14 12:05 | PN ---
Teaching Attending Note Name of Resident: Cedrick Barajas ATTENDING PHYSICIAN STATEMENT I saw and evaluated the patient. I reviewed the resident's note and discussed the case with the resident. I agree with the resident's findings and plan as documented. SUBJECTIVE: Pt seen and examined in the ICU. States left arm and leg strength improving. Headache resolved with tylenol. OBJECTIVE: Vital Signs Period Temp Pulse Resp BP Sys/Chavarria Pulse Ox Last 24 Hr 97.3 F-98.6 F 60-84 13-20 93-125/60-82 98-100 Intake & Output 10/11/17 10/12/17 10/13/17 10/14/17 23:59 23:59 23:59 23:59 Intake Total 100 420 Output Total 1000 150 Balance -900 270 Weight 69.127 kg Gen: NAD at rest Heart: RRR Lung: decreased breath sounds at the bases Abd: soft, nontender Ext: no edema CBC, BMP 10/13/17 08:58 10/13/17 08:58 Active Medications Acetaminophen (Tylenol -) 650 mg PO Q6H PRN PRN Reason: Fever Or Pain Last Admin: 10/14/17 09:11 Dose: 650 mg Aspirin (Ecotrin -) 81 mg PO DAILY BRIANNA Last Admin: 10/14/17 09:11 Dose: 81 mg Sodium Chloride (Normal Saline -) 1,000 mls @ 75 mls/hr IV ASDIR BRIANNA Last Admin: 10/14/17 11:14 Dose: 75 mls/hr Insulin Aspart (Novolog Vial Sliding Scale -) 1 vial SQ ACHS [facility]; Protocol Last Admin: 10/14/17 11:14 Dose: Not Given Rosuvastatin Calcium (Crestor -) 20 mg PO [facility] ASSESSMENT AND PLAN: Acute CVA s/p tPA - neuro checks - ASA, statin - monitor H/H - telemetry monitoring, will likely need fdc cardiac monitoring to r/o PAF - rehab/PT - can monitor on telemetry
[2017-10-14] MEDS ORDERED: SODIUM CHLORIDE 1,000 ML IV STA (13:11)
--- NOTE | 2017-10-14 14:49 | CONSULT ---
Consult Consult Specialty:: Hematology Referred by:: Hospitalist Team Reason for Consultation:: Anemia. Stroke. Eosinophilia, basophilia - History of Present Illness Chief Complaint: Presented initially with left sided facial numbness and developed left sided weakness. Underwent TPA with improvement in numbness and some improvement in left sided weakness. CT and CTA- no definite evidence of cerebral infarct. - History Source History Provided By: Patient, Medical Record Limitations to Obtaining History: No Limitations - Past Medical History ...LMP: 09/30/17 ...: No (tube ligation) Endocrine: Yes: Other ("pre-diabetes") - Alcohol/Substance Use Hx Alcohol Use: No - Smoking History Smoking history: Never smoked Have you smoked in the past 12 months: No If you are a former smoker, when did you quit?: over 5 years ago Home Medications - Allergies Allergies/Adverse Reactions: Allergies Allergy/AdvReac Type Severity Reaction Status Date / Time No Known Allergies Allergy Verified 10/13/17 09:16 - Home Medications Home Medications: Ambulatory Orders NK [No Known Home Medication] 10/13/17 Family Disease History - Family Disease History Family Disease History: CA: Sister (strokes; throat cancer), Other: Father (HBP and multiple strokes) Review of Systems - Review of Systems Constitutional: denies: Fever, Lethargy, Loss of Appetite, Night Sweats Eyes: denies: Blind Spots, Blurred Vision, Double Vision HENT: denies: Difficult Swallowing, Throat Pain Neck: denies: Pain on Movement, Stiffness, Swollen Glands, Tenderness Cardiovascular: denies: Chest Pain, Shortness of Breath Respiratory: denies: Cough, SOB, SOB on Exertion Gastrointestinal: reports: Other (never had colonoscopy). denies: Diarrhea, Dysphagia, Melena, Nausea, Vomiting Genitourinary: reports: Other (PAP last year - neg,). denies: Burning, Dysuria Breasts: reports: No Symptoms Reported, Other (mammogra[hy in past non revealing- one year earlier) Musculoskeletal: denies: Muscle Pain, Muscle Cramps, Muscle Weakness Integumentary: denies: Blister, Bruising, Erythema Neurological: reports: No Symptoms Endocrine: reports: No Symptoms Hematology/Lymphatic: denies: Excessive Bleeding, Swollen Glands Psychiatric: reports: No Symptoms Physical Exam Vital Signs: Vital Signs Temperature 97.6 F 10/14/17 10:00 Pulse Rate 58 L 10/14/17 12:00 Respiratory Rate 17 10/14/17 12:00 Blood Pressure 103/66 10/14/17 12:00 O2 Sat by Pulse Oximetry (%) 98 10/14/17 09:00 Constitutional: Yes: Mild Distress Eyes: Yes: PERRL. No: Cataracts, Ptosis, Sclera Icterus HENT: Yes: Atraumatic, Normocephalic. No: Epistaxis, Hoarseness, Nasal Congestion, Thrush, Tonsillar Exudate Neck: Yes: Supple, Trachea Midline. No: Thyromegaly Cardiovascular: Yes: Regular Rate and Rhythm. No: Murmur Respiratory: Yes: Regular, CTA Bilaterally Gastrointestinal: Yes: Normal Bowel Sounds, Soft. No: Ascites, Hepatomegaly, Splenomegaly Renal/: No: CVA Tenderness - Left, CVA Tenderness - Right Musculoskeletal: No: Back Pain Extremities: No: Cold, Cyanosis Edema: No Neurological: Yes: Weakness, Other (left sided weakness) Labs: CBC, BMP 10/13/17 08:58 10/13/17 08:58 Imaging - Results Cat Scan: Report Reviewed Other: Report Reviewed, Other (CTA) Problem List - Problems (1) Hyperlipidemia Code(s): E78.5 - HYPERLIPIDEMIA, UNSPECIFIED Qualifiers: Hyperlipidemia type: pure hypercholesterolemia Qualified Code(s): E78.00 - Pure hypercholesterolemia, unspecified; E78.0 - Pure hypercholesterolemia (2) Non-hemorrhagic stroke Assessment/Plan: No prior risk factors of HBP, HLD, ; Family history of strokes in father and sister Discussed outpatient thrombophilia work up Code(s): I63.9 - CEREBRAL INFARCTION, UNSPECIFIED (3) Unspecified deficiency anemia Assessment/Plan: Normal RBC count with sever hypo/micro indices suggest thalassemia. To check HbE Reverse a/g - to check proteins Eosinophilia and basophilia- to check AARON-2 and BCR-ABL ; CHRIS, O & P,ESR Code(s): D53.9 - NUTRITIONAL ANEMIA, UNSPECIFIED
[2017-10-14 16:00] LABS: BASO % 1.2 % (0-2.0); EOS % 6.8 % (0-4.5); HEMATOCRIT 28.9 % (32.4-45.2); HEMOGLOBIN 8.7 GM/dL (10.7-15.3); LYMPH % 28.5 % (8-40); MCHC 30.1 g/dl (32.0-36.0); MEAN CELL VOLUME 65.1 fl (80-96); MEAN PLT VOLUME 9.6 fl (7.5-11.1); MONO % 8.1 % (3.8-10.2); NEUT % 55.4 % (42.8-82.8); PLATELET COUNT 233 K/MM3 (134-434); RBC 4.44 M/mm3 (3.60-5.2); RDW 19.1 % (11.6-15.6)
[2017-10-14 16:31] LABS: ALBUMIN 3.3 g/dl (3.4-5.0); ANION GAP 7 (8-16); BILIRUBIN,TOTAL 0.4 mg/dL (0.2-1.0); BLOOD UREA NITROGEN 8 mg/dL (7-18); CALCIUM 8.2 mg/dL (8.5-10.1); CHLORIDE 109 mmol/L (98-107); CO2 27 mmol/L (21-32); CREATININE 0.6 mg/dL (0.55-1.02); GLUCOSE,RANDOM 116 mg/dL (74-106); MAGNESIUM 2.1 mg/dL (1.8-2.4); PHOSPHOROUS 3.5 mg/dL (2.5-4.9); POTASSIUM 3.9 mmol/L (3.5-5.1); SGOT/AST 16 U/L (15-37); SGPT/ALT 22 U/L (12-78); SODIUM 143 mmol/L (136-145); TOT PROT 7.5 g/dl (6.4-8.2)
[2017-10-14 16:40] LABS: ALK PHOS 73 U/L (45-117)
[2017-10-14 17:20] LABS: MCH 19.6 pg (25.7-33.7)
--- NOTE | 2017-10-14 19:17 | PN ---
Progress Note (short form) - Note Progress Note: HP:10/13/17: 52 year old woman, pre-diabetes, otherwise healthy who awoke this AM at 4:30 this AM and at 6:30 this AM started noticing numbness in the left face. Presented a short while later with numbness in that region and some weakness in the left face, arm and leg. Unclear what time the weakness started. She was given TPA upon our phone consultaton based on NIHSS of 4 and determination of significant disability, reasonable window, and no contraindications. Upon my arrival, as TPA was finishing she noted no longer feeling numb on left face but she remains weak on left side. Mild volume loss mainly in the high convexity. No gross acute intracranial pathology is identified. Pansinusitis with an air-fluid level in the right maxillary antrum suggestive of superimposed acute sinusitis. FU : feels better she states may have been over fatigued MRI - no clear evidence of acute CVA , await official CT HD - no bleed, acute CVA; pansinusitis - History Source History Provided By: Patient, Medical Record Limitations to Obtaining History: No Limitations - Past Medical History Endocrine: Yes: Other ("pre-diabetes") - Alcohol/Substance Use Hx Alcohol Use: No - Smoking History Smoking history: Never smoked Have you smoked in the past 12 months: No Home Medications - Allergies Allergies/Adverse Reactions: Allergies Allergy/AdvReac Type Severity Reaction Status Date / Time No Known Allergies Allergy Verified 10/13/17 09:16 Physical Exam-Neuro Vital Signs: Vital Signs Temperature 98.6 F 10/13/17 08:16 Pulse Rate 71 10/13/17 08:16 Respiratory Rate 16 10/13/17 08:16 Blood Pressure 132/89 10/13/17 08:16 O2 Sat by Pulse Oximetry (%) 100 10/13/17 08:16 Labs: CBC, BMP 10/13/17 08:58 INR, PTT INR 1.12 (0.82-1.09) 10/13/17 08:58 - Neuro Exam Level Of Consciousness: Yes: Alert, Oriented to Person, Oriented to Place, Oriented to Time Eyes: Yes: ERICA Speech: WNL Cranial Nerves II-XII Intact: Yes DTR's: 2+ Left Bicep, 2+ Right Bicep, 2+ Left Tricep, 2+ Right Tricep, 2+ Left Brachioradialis, 2+ Right Brachioradialis, 2+ Left Achilles, 2+ Right Achilles Babinski: Absent Response to light touch: Normal Response to pain prick: Normal Coordination: Normal: Finger to Nose, Heel to [place] Motor Strength: appaers min drift LUE Gait: Deferred NIH Stroke Scale - Last Known Well Date/Time & Onset Date Last Known Well: 10/13/17 Time Last Known Well: 06:30 - Initial Evaluation Level of consciousness: Alert Ask patient the month and their age: Answers both correctly Ask patient to open & close eyes; make fist and let go: Obeys both correctly Best gaze (horizontal eye movement): Normal Visual field testing: No visual field loss Facial paresis (Show teeth/raise eyebrows/close eyes tight): Normal symmetrical movement Motor Function: Left Arm: Drift Motor Function: Right Arm: Normal (extends arm 90 (or 45) degrees for 10 seconds without drift Motor Function: Left Leg: Drift Motor Function: Right Leg: Normal (extends leg 30 degrees for 5 seconds without drift) Limb Ataxia: No ataxia Sensory(Use pinprick test arms,legs,trunk,face/side to side): Normal Best language (Describe picture, name items, read sentences): No Aphasia Dysarthria (read several words): Normal articulation Extinction and Inattention: No abnormality - Total Score NIH Stroke Scale Score: 2 Imaging - Results Cat Scan: Report Reviewed, Image Reviewed (negative) Problem List - Problems (1) Non-hemorrhagic stroke Code(s): I63.9 - CEREBRAL INFARCTION, UNSPECIFIED Assessment/Plan 52 year old woman left sided weakness, given TPA for presumptive CVA, though MRI (-) , CTA (-) she appears to be doing better and unclear if this was a stroke mechanism , TIA ? no sig RF close to baseline now ASA, fu echo suspect she can be DC in AM outpt FU DR KIRBY [phone]
[2017-10-14] MEDS ORDERED: PT OWN MED DRAWER 7, Y5N ONE (21:02)
[2017-10-15 06:32] LABS: HEMATOCRIT 29.4 % (32.4-45.2); MCHC 30.4 g/dl (32.0-36.0); MEAN CELL VOLUME 65.2 fl (80-96); PLATELET COUNT 194 K/MM3 (134-434); RBC 4.52 M/mm3 (3.60-5.2); RDW 18.4 % (11.6-15.6); WHITE BLOOD COUNT 5.3 K/mm3 (4.0-10.0)
[2017-10-15 06:35] LABS: MCH 19.8 pg (25.7-33.7)
[2017-10-15 07:03] LABS: CHLORIDE 109 mmol/L (98-107); SODIUM 143 mmol/L (136-145)
[2017-10-15 07:07] LABS: ALBUMIN 3.3 g/dl (3.4-5.0); ALK PHOS 76 U/L (45-117); ANION GAP 6 (8-16); BILIRUBIN,TOTAL 0.6 mg/dL (0.2-1.0); BLOOD UREA NITROGEN 8 mg/dL (7-18); CALCIUM 8.5 mg/dL (8.5-10.1); CO2 28 mmol/L (21-32); CREATININE 0.5 mg/dL (0.55-1.02); GLUCOSE,RANDOM 96 mg/dL (74-106); LDH 121 U/L (84-246); MAGNESIUM 1.9 mg/dL (1.8-2.4); PHOSPHOROUS 3.9 mg/dL (2.5-4.9); SGOT/AST 15 U/L (15-37); SGPT/ALT 22 U/L (12-78); TOT PROT 7.7 g/dl (6.4-8.2)
[2017-10-15] MEDS ORDERED: PT OWN MED DRAWER 7, Y5N ONE (08:59)
[2017-10-15] MEDS: ASPIRIN COATED 81 MG TABLET.EC PO SCH (09:03)
--- NOTE | 2017-10-15 09:19 | PN ---
Progress Note, Physician History of Present Illness: Reports continued improvement in left sided weakness and left facial numbness. CTA negative for large vessel occlusion, repeat HCT negative, brain MRI negative for stroke, tele without PAF, carotid U/S negative. - Current Medication List Current Medications: Active Medications Acetaminophen (Tylenol -) 650 mg PO Q6H PRN PRN Reason: Fever Or Pain Last Admin: 10/14/17 09:11 Dose: 650 mg Aspirin (Ecotrin -) 81 mg PO DAILY [facility] Last Admin: 10/15/17 09:03 Dose: 81 mg Sodium Chloride (Normal Saline -) 1,000 mls @ 75 mls/hr IV ASDIR [facility] Last Admin: 10/14/17 11:14 Dose: 75 mls/hr Insulin Aspart (Novolog Vial Sliding Scale -) 1 vial SQ ACHS [facility]; Protocol Last Admin: 10/14/17 22:35 Dose: Not Given Rosuvastatin Calcium (Crestor -) 20 mg PO HS [facility] Last Admin: 10/14/17 22:30 Dose: 20 mg - Objective Vital Signs: Vital Signs Temperature 98.8 F 10/14/17 16:09 Pulse Rate 62 10/15/17 06:00 Respiratory Rate 17 10/15/17 06:00 Blood Pressure 120/72 10/15/17 06:00 O2 Sat by Pulse Oximetry (%) 97 10/14/17 20:34 Constitutional: Yes: No Distress, Calm, Thin Neck: Yes: Supple Cardiovascular: Yes: Regular Rate and Rhythm Respiratory: Yes: Regular, CTA Bilaterally Gastrointestinal: Yes: Normal Bowel Sounds, Soft Edema: No Labs: CBC, BMP 10/15/17 05:30 10/15/17 05:30 INR, PTT INR 1.12 (0.82-1.09) 10/13/17 08:58 Problem List - Problems (1) Hyperlipidemia Code(s): E78.5 - HYPERLIPIDEMIA, UNSPECIFIED Qualifiers: Hyperlipidemia type: pure hypercholesterolemia Qualified Code(s): E78.00 - Pure hypercholesterolemia, unspecified; E78.0 - Pure hypercholesterolemia (2) Non-hemorrhagic stroke Code(s): I63.9 - CEREBRAL INFARCTION, UNSPECIFIED Assessment/Plan 10/14/2017 Echo: Normal LV size and fxn, no aortic stenosis, mild YONI, normal atrial sizes 1. Presumed stroke, TIA s/p tPA improving 2. Hyperlipidemia P:1. bus monitor to r/o PAF, would benefit from prolonged arrhythmia monitoring to screen for PAF as outpatient 2. S&S eval, neuro input, PT appreciated 3. Continue ASA 81 qd, Crestor 20 qd 4. D/c planning, outpatient thrombophilia evaluation
[2017-10-15 12:03] VITALS: BMI 25.2
--- NOTE | 2017-10-15 12:53 | PN ---
Teaching Attending Note Name of Resident: Cedrick Barajas ATTENDING PHYSICIAN STATEMENT I saw and evaluated the patient. I reviewed the resident's note and discussed the case with the resident. I agree with the resident's findings and plan as documented. SUBJECTIVE: Pt seen and examined in the ICU. Left sided weakness improving but not at baseline. Headache resolved. OBJECTIVE: Vital Signs Period Temp Pulse Resp BP Sys/Chavarria Pulse Ox Last 24 Hr 98.2 F-99.1 F 53-76 11-22 89-124/63-87 97-97 Intake & Output 10/12/17 10/13/17 10/14/17 10/15/17 23:59 23:59 23:59 23:59 Intake Total 100 2245 749 Output Total 1000 1050 Balance -900 1195 749 Weight 69.127 kg 68.946 kg Gen: NAD at rest Heart: RRR Lung: decreased breath sounds at the bases Abd: soft, nontender Ext: no edema Neuro: 4/5 motor, LUE, LLE CBC, BMP 10/15/17 05:30 10/15/17 05:30 Active Medications Acetaminophen (Tylenol -) 650 mg PO Q6H PRN PRN Reason: Fever Or Pain Last Admin: 10/14/17 09:11 Dose: 650 mg Aspirin (Ecotrin -) 81 mg PO DAILY [facility] Last Admin: 10/15/17 09:03 Dose: 81 mg Sodium Chloride (Normal Saline -) 1,000 mls @ 75 mls/hr IV ASDIR [facility] Last Admin: 10/14/17 11:14 Dose: 75 mls/hr Rosuvastatin Calcium (Crestor -) 20 mg PO HS [facility] Last Admin: 10/14/17 22:30 Dose: 20 mg ASSESSMENT AND PLAN: Acute CVA/TIA s/p tPA - neuro checks - ASA, statin - monitor H/H - d/c IVF - telemetry monitoring, 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
--- NOTE | 2017-10-15 14:12 | PN ---
Physical Exam: SUBJECTIVE: Patient seen and examined in the ICU. States she is no longer having the headaches. States that her weakness is improving and that she hopes to go home soon. Discussed with patient the possibility of a need for short term rehab. OBJECTIVE: Vital Signs Period Temp Pulse Resp BP Sys/Chavarria Pulse Ox Last 24 Hr 98.8 F-99.1 F 53-76 11-22 97-124/63-87 97-97 GENERAL: Awake, alert, and fully oriented, in no acute distress. HEAD: Normal with no signs of trauma. EYES: PERRLA, extraocular movements intact, sclera anicteric, conjunctiva clear. No lid lag. EARS, NOSE, THROAT: Ears normal, nares patent, Moist mucous membranes. NECK: supple without lymphadenopathy, JVD, or masses. LUNGS: Breath sounds equal, clear to auscultation bilaterally. No wheezes, and no crackles. No accessory muscle use. HEART: Regular rate and rhythm, normal S1 and S2 without murmur, rub or gallop. ABDOMEN: Soft, nontender, not distended, normoactive bowel sounds, no guarding, no rebound, no masses. MUSCULOSKELETAL: Normal range of motion at all joints. No bony deformities or tenderness. No CVA tenderness. UPPER EXTREMITIES: warm, well-perfused. No cyanosis. No clubbing. Cap refill <2 seconds. No peripheral edema. LOWER EXTREMITIES: warm, well-perfused. No calf tenderness. No peripheral edema. NEUROLOGICAL: 4/5 strength of the LLE, 4/5 LUE remains from yesterday. 5/5 strength of RLE, RUE. Cranial nerves II-XII grossly intact. Normal speech. Gait not observed. PSYCHIATRIC: Cooperative. Good eye contact. Appropriate mood and affect. SKIN: Warm, dry, normal turgor, no rashes or lesions noted. Laboratory Results - last 24 hr 10/14/17 10/14/17/03/23 14:45 14:45 05:30 WBC 6.0 5.3 RBC 4.44 4.52 Hgb 8.7 L 9.0 L Hct 28.9 L 29.4 L MCV 65.1 L 65.2 L MCH 19.6 L 19.8 L MCHC 30.1 L 30.4 L RDW 19.1 H 18.4 H Plt Count 233 194 MPV 9.6 9.0 Absolute Neuts (auto) 3.3 Neutrophils % 55.4 Lymphocytes % 28.5 Monocytes % 8.1 Eosinophils % 6.8 H Basophils % 1.2 Nucleated RBC % 0 ESR Sodium 143 Potassium 3.9 Chloride 109 H Carbon Dioxide 27 Anion Gap 7 L BUN 8 Creatinine 0.6 Creat Clearance w eGFR > 60 Random Glucose 116 H Calcium 8.2 L Phosphorus 3.5 Magnesium 2.1 Total Bilirubin 0.4 AST 16 ALT 22 Alkaline Phosphatase 73 D LD Total Total Protein 7.5 Albumin 3.3 L TSH 1.23 10/15/17 10/15/17 05:30 05:30 WBC RBC Hgb Hct MCV MCH MCHC RDW Plt Count MPV Absolute Neuts (auto) Neutrophils % Lymphocytes % Monocytes % Eosinophils % Basophils % Nucleated RBC % ESR 22 Sodium 143 Potassium 4.0 Chloride 109 H Carbon Dioxide 28 Anion Gap 6 L BUN 8 Creatinine 0.5 L Creat Clearance w eGFR > 60 Random Glucose 96 Calcium 8.5 Phosphorus 3.9 Magnesium 1.9 Total Bilirubin 0.6 AST 15 ALT 22 Alkaline Phosphatase 76 LD Total 121 Total Protein 7.7 Albumin 3.3 L TSH Active Medications Generic Name Dose Route Start Last Admin Trade Name Freq PRN Reason Stop Dose Admin Acetaminophen 650 mg 10/14/17 07:55 10/14/17 09:11 Tylenol - PO 650 mg Q6H PRN Administration Fever Or Pain Aspirin 81 mg 10/14/17 10:00 10/15/17 09:03 Ecotrin - PO 81 mg DAILY BRIANNA Administration Rosuvastatin Calcium 20 mg 10/14/17 10:28 10/14/17 22:30 Crestor - PO 20 mg HS BRIANNA Administration ASSESSMENT/PLAN: 52 yo female admitted to the ICU with CVA s/p tPA infusion Neuro -Acute CVA s/p tPA Weakness similar to yesterday Continue to monitor with Neuro checks Q2 Crestor 20 mg PO HS ASA 81mg PO Daily Cardio -Permissive HTN s/p tPA infusion Currently normotensive Maintain b.p <185 systolic and <110 diastolic -Echo reviewed -Carotid Doppler b/l revealed no stenosis -Lipid panel: LDL 128 - statin as above Respiratory -No respiratory complaints, will caution pt to be careful eating and elevate head of bed to decrease risk of aspiration tolerating normal diet well GI -No GI complaints as of now Renal -Good renal function, follow BMP Endocrine -No hx of DM Tight glycemic control <180 Insulin sliding scale ordered as precaution VTE Prophylaxis -SCDs b/l -ASA -OOB walking with PT FEN Fluids: no fluids tolerating diet Electrolytes: No electrolyte abnormalities Nutrition: Tolerating regular diet well Disposition Transfer to telemetry Problem List - Problems (1) Non-hemorrhagic stroke Code(s): I63.9 - CEREBRAL INFARCTION, UNSPECIFIED Visit type - Emergency Visit Emergency Visit: Yes ED Registration Date: 10/13/17 Care time: The patient presented to the Emergency Department on the above date and was hospitalized for further evaluation of their emergent condition. - New Patient This patient is new to me today: No - Critical Care Critical Care patient: Yes Total Critical Care Time (in minutes): 35 Critical Care Statement: The care of this patient involved high complexity decision making to prevent further life threatening deterioration of the patient 's condition and/or to evaluate & treat vital organ system(s) failure or risk of failure.
--- NOTE | 2017-10-15 15:47 | DS ---
Physical Examination Vital Signs: Vital Signs Temperature 99.1 F 10/15/17 12:00 Pulse Rate 69 10/15/17 14:00 Respiratory Rate 14 10/15/17 14:00 Blood Pressure 108/70 10/15/17 14:00 O2 Sat by Pulse Oximetry (%) 97 10/15/17 09:00 Labs: CBC, BMP 10/15/17 05:30 10/15/17 05:30 Discharge Summary Reason For Visit: NON HEMORRHAGIC CVA Current Active Problems Hyperlipidemia (Acute) Non-hemorrhagic stroke (Acute) Unspecified deficiency anemia (Acute) Condition: Critical - Instructions Diet, Activity, Other Instructions: Please return to the ED with new, persistent, or worsening symptoms. Please follow-up with providers as indicated. Referrals: Og George DO [Staff Physician] - (Please follow-up with neurology within 1 week for further post stroke management. ) Arcadio Martínez MD [Staff Physician] - (Please follow-up with hematology for further outpatient hypercoaguable workup and to receive test results from blood work that was taking during this admission. Please call their office tomorrow to schedule an appointment within 1 week. ) Óscar Lucia MD [Staff Physician] - (Please follow-up with cardiology within the next 2-3 days for further outpatient cardiac testing. ) - Home Medications Comprehensive Discharge Medication List: Ambulatory Orders Aspirin Coated [Ecotrin -] 81 mg PO DAILY #30 tablet.ec 10/15/17 Rosuvastatin [Crestor -] 20 mg PO HS #30 tablet 10/15/17 Walker [Ultra-Light Rollator] 1 each [facility] DAILY #1 each 10/15/17
[2017-10-15 16:31] VITALS: BP 136/75; PULSE 94; TEMP 99.2
[2017-10-17 10:17] LABS: IGA IMMUNOGLOBULIN 410 mg/dL (87-352); IGG IMMUNOGLOBULIN 1543 mg/dL (700-1600); IGM IMMUNOGLOBULIN 199 mg/dL (26-217)
[2017-10-19 10:10] LABS: HGB SOLUBILITY Negative (Negative); Hgb C 0 % (0.0); Hgb F 0 % (0.0-2.0); Hgb S 0 % (0.0)
--- NOTE | 2017-10-21 09:50 | PATH ---
Surgical Pathology Report Patient Name: JUAN PIZARRO [facility]. Rec. #: [id number] /Age/Gender: 1965 (Age: 52) / F Account: [id number] Location: [facility] Taken: 10/15/2017 Received: 10/15/2017 Reported: 10/21/2017 Physicians: PHYSICIAN EMERGENCY DEPT Arcadio Martínez M.D. Specimen(s) Received 4 LAVENDER TOPS Clinical History Eosinophilia, basophilia, CVA Final Diagnosis BCR-ABL Gene Rearrangement (IS) [facility] [place] [place] ([id number]) shows the following: RESULTS: Negative BCR/ABL Major breakpoints (b2a2 and b3a2): Not Detected BCR/ABL Minor breakpoint (e1a2): Not Detected INTERPRETATION: No BCR-ABL translocation was detected in this sample. JAK2 V617F MUTATION ANALYSIS BY PCR ([id number]) [facility] [place] [place] shows the following: RESULTS: Only the Wild-Type JAK2 Sequence Was Detected. INTERPRETATION. Negative for JAK2 V617F mutation. See [facility] report ([id number]) for additional details. Electronically Signed Celsa Hsu M.D. Gross Description Received are 4 lavender top tubes of peripheral blood which are sent to [facility]. /10/15/2017 saudi/10/15/2017
== END 2017-10-15 16:58 | disposition home or self-care (01) | DRG 45 ==
LOC: JER 08:16 → JERBED 10:16 → JICU 17:55
PROVIDERS: ADMIT Internal Medicine; ATTEND Registered Nurse
DX: I63.9 Cerebral infarction, unspecified (principal); G81.94 Hemiplegia, unspecified affecting left nondominant side; E78.5 Hyperlipidemia, unspecified; I10 Essential (primary) hypertension; R29.702 NIHSS score 2; D53.9 Nutritional anemia, unspecified
CPT/HCPCS: 36415; 70450-TC; 70496-TC; 70551-TC; 80053; 80061; 81003; 81015; 82465; 82550; 82784; 82962; 83021; 83036; 83615; 83718; 83721; 83735; 84100; 84155; 84165; 84443; 84478; 84484; 85025; 85027; 85610; 85651; 85660; 86003; 86038; 86334; 86850; 86900; 86901; 93005; 93010; 93306-TC; 93880-TC; 97116-GP; 97162-GP; 99285-25; J2997; J7030